=== PATIENT | female | born 1990 | race Caucasian/White ===

== ENCOUNTER → 2023-07-03 10:53 | Outpatient (REF) | payer BC, SELFPAY | LOC: PNTC 10:53 | PROVIDERS: ATTENDING PHYSICIAN Obstetrics & Gynecology | DX: O34.10 Maternal care for benign tumor of corpus uteri, unspecified trimester (principal) | CPT/HCPCS: 76801; 76805; 76813 ==

== ENCOUNTER → 2023-07-23 12:42 | Outpatient (REF) | payer BC, SELFPAY | LOC: REG 12:42 | PROVIDERS: ATTENDING PHYSICIAN Obstetrics & Gynecology; FAMILY PHYSICIAN Family Medicine | DX: Z34.92 Encounter for supervision of normal pregnancy, unspecified, second trimester (principal); O26.852 Spotting complicating pregnancy, second trimester | CPT/HCPCS: 36415; 86850; 86900; 86901; J2790 ==

== ENCOUNTER → 2023-10-28 12:01 | Outpatient (REF) | payer BC, SELFPAY | LOC: REG 12:01 | PROVIDERS: ATTENDING PHYSICIAN Obstetrics & Gynecology; FAMILY PHYSICIAN Family Medicine | DX: O26.90 Pregnancy related conditions, unspecified, unspecified trimester (principal) | CPT/HCPCS: 36415; 86850; 86900; 86901; J2790 ==

== ENCOUNTER → 2023-11-24 06:51 | Outpatient (REF) | payer BC, SELFPAY | LOC: PNTC 06:51 | PROVIDERS: ATTENDING PHYSICIAN Obstetrics & Gynecology | DX: O34.10 Maternal care for benign tumor of corpus uteri, unspecified trimester (principal) | CPT/HCPCS: 76816 ==

== ENCOUNTER → 2023-12-11 11:56 | Outpatient (REF) | payer BC, SELFPAY | LOC: PNTC 11:56 | PROVIDERS: ATTENDING PHYSICIAN Obstetrics & Gynecology | DX: O36.8190 Decreased fetal movements, unspecified trimester, not applicable or unspecified (principal) | CPT/HCPCS: 59025; 76815 ==

== ENCOUNTER → 2023-12-22 13:30 | Outpatient (REF) | payer BC, SELFPAY | LOC: PNTC 13:30 | PROVIDERS: ATTENDING PHYSICIAN Obstetrics & Gynecology | DX: O36.60X0 Maternal care for excessive fetal growth, unspecified trimester, not applicable or unspecified (principal) | CPT/HCPCS: 76816 ==

== ENCOUNTER 2024-01-01 19:33 | Inpatient (IN) | payer BC, SELFPAY ==
[2024-01-01 19:40] VITALS: BMI 30.4
[2024-01-01] MEDS: LR 1000 IV (20:05)
[2024-01-01] MEDS: CYTOTEC 50 MICROGRAM VAG (20:13)
[2024-01-01 20:59] LABS: % Basophils 0.2 % (0-2); % Eosinophils 0.8 % (0-6); % Immature Granulocytes 0.6 % (0-0.5); % Lymphocytes 17.7 % (20.5-51.1); % Monocytes 6.7 % (1.7-9.3); Absolute Eosinophils 0.1 10^3/uL (0-0.7); Absolute Immature Granulocytes 0.1 10^3/uL (0-0.05); Absolute Lymphocytes 2.5 10^3/uL (1.2-3.4); Absolute Neutrophils 10.5 10^3/uL (1.4-6.5); Hematocrit 37.7 % (37.0-47.0); Hemoglobin 13.3 g/dL (12.0-16.0); Mean Corp Hgb Conc. 35.3 g/dL (33.0-37.0); Mean Corpuscular Hgb 28.5 pg (27.0-31.0); Mean Corpuscular Volume 80.7 fL (81.0-99.0); Mean Platelet Volume 9.9 fL (7.4-10.4); Nucleated Red Blood Cells % 0 %; Platelet Count 287 10^3/uL (130-400); Red Blood Cell Count 4.67 10^6/uL (4.20-5.40); Red Cell Dist. Width 12.4 % (11.5-14.5); White Blood Cell Count 14.3 10^3/uL (4.8-10.8)
[2024-01-02] MEDS: STADOL 1 MG IV ×3 (01:19→22:00)
[2024-01-02] MEDS: LR 1000 IV (01:50)
[2024-01-02] MEDS: PITOCIN 30 UNITS/NSS 500 ML IV (11:49)
[2024-01-02] MEDS: SUBLIMAZE 100 MCG EPIDURAL (23:28)
[2024-01-02] MEDS: FENTANYL/BUPIVACAINE 100 EPIDURAL (23:28)
[2024-01-03] MEDS: ANCEF 10 IV (00:45)
[2024-01-03 01:04] LABS: Cord ABG Comment CORD BLOOD
[2024-01-03 01:09] LABS: B.E. Cord ABG -8.1 mMOL/L; HCO3 Cord ABG 24.9 mmol/L; O2 Saturation % Cord ABG 9.3 %; PCO2 Cord ABG 86 mmHg; PO2 Cord ABG 9 mmHg; pH Cord ABG 7.07
[2024-01-03 01:12] LABS: B.E. Cord ABG -7.6 mMOL/L; HCO3 Cord ABG 23.6 mmol/L; O2 Saturation % Cord ABG 27.1 %; PCO2 Cord ABG 71 mmHg; PO2 Cord ABG 18 mmHg; pH Cord ABG 7.13
[2024-01-03] MEDS: TYLENOL 650 MG PO ×2 (06:33→21:10)
--- NOTE | 2024-01-03 08:06 | W.PN.ANS.POP ---
Anesthesia Post Operative
- Anesthesia Post Op Note
Vital Signs Stable-See Nursing Note: Yes
Airway Patent: Yes
Adequate Pain Control: Yes
Change in Mental Status: No
Current Postoperative Nausea & Vomiting: No
Anesthesia Complications: No
General Anesthetic Recall: No
Unplanned Admission: No
Post Op Hydration Adequate: Yes
[2024-01-03] MEDS: PRENATAL PLUS 1 TABLET PO (08:22)
[2024-01-03] MEDS: TORADOL 15 MG IV ×3 (08:22→19:33)
[2024-01-03] MEDS: MYLICON 80 MG PO (20:01)
[2024-01-04] MEDS: TORADOL 15 MG IV (01:48)
[2024-01-04] MEDS: PERCOCET 5/325 1 TABLET PO ×5 (01:58→20:09)
[2024-01-04 04:28] LABS: Hematocrit 38.6 % (37.0-47.0); Hemoglobin 13.3 g/dL (12.0-16.0); Mean Corp Hgb Conc. 34.5 g/dL (33.0-37.0); Mean Corpuscular Hgb 29.2 pg (27.0-31.0); Mean Corpuscular Volume 84.8 fL (81.0-99.0); Mean Platelet Volume 9.8 fL (7.4-10.4); Platelet Count 258 10^3/uL (130-400); Red Blood Cell Count 4.55 10^6/uL (4.20-5.40); Red Cell Dist. Width 12.4 % (11.5-14.5); White Blood Cell Count 13.8 10^3/uL (4.8-10.8)
[2024-01-04] MEDS: SENOKOT-S 1 TABLET PO (08:16)
[2024-01-04] MEDS: MOTRIN 600 MG PO ×3 (08:16→20:15)
[2024-01-04] MEDS: PRENATAL PLUS 1 TABLET PO (08:17)
[2024-01-04] MEDS: MYLICON 80 MG PO ×2 (08:17→20:36)
[2024-01-05] MEDS: TYLENOL 650 MG PO ×3 (00:27→14:16)
[2024-01-05] MEDS: MOTRIN 600 MG PO ×2 (03:58→10:00)
[2024-01-05] MEDS: PERCOCET 5/325 1 TABLET PO (05:57)
[2024-01-05] MEDS: MYLICON 80 MG PO (07:53)
[2024-01-05] MEDS: PRENATAL PLUS 1 TABLET PO (07:53)
[2024-01-05] MEDS: SENOKOT-S 1 TABLET PO (07:53)
[2024-01-06 14:47] LABS: Syphilis/T. pallidum Ab Reflex Negative (Negative)
== END 2024-01-05 15:10 | disposition home or self-care (01) | DRG 788 ==
LOC: LDRP 19:33
PROVIDERS: ADMITTING PHYSICIAN Obstetrics & Gynecology; FAMILY PHYSICIAN Obstetrics & Gynecology
PROC: 10D00Z1 Extraction of Products of Conception, Low, Open Approach (ICD-10-PCS; 2024-01-03)
PROC: 3E033VJ Introduction of Other Hormone into Peripheral Vein, Percutaneous Approach (ICD-10-PCS; 2024-01-03)
PROC: 3E0234Z Introduction of Serum, Toxoid and Vaccine into Muscle, Percutaneous Approach (ICD-10-PCS; 2024-01-04)
DX: O76 Abnormality in fetal heart rate and rhythm complicating labor and delivery (principal); O34.13 Maternal care for benign tumor of corpus uteri, third trimester; D25.2 Subserosal leiomyoma of uterus; O99.344 Other mental disorders complicating childbirth; F32.A Depression, unspecified; F41.9 Anxiety disorder, unspecified; F90.9 Attention-deficit hyperactivity disorder, unspecified type; Z3A.39 39 weeks gestation of pregnancy; Z37.0 Single live birth; Z88.1 Allergy status to other antibiotic agents; Z88.8 Allergy status to other drugs, medicaments and biological substances
CPT/HCPCS: 88307; 82803; 85025; 85027; 86780; 86850; 86870; 86900; 86901